=== PATIENT | female | born 1995 | race African-American/Black ===

== ENCOUNTER 2020-05-20 10:31 | Emergency (ER) | payer OTHER ==
[~2020-05-20] VITALS: Ht 160 cm; Wt 57.6 kg
--- NOTE | 2020-05-20 12:53 | Diagnostic Imaging Report ---
X-ray left forearm 2 views History: Trauma Comparison: None Findings: No acute fracture, subluxation, significant soft tissue swelling or radiopaque foreign body. Impression: As above. Signed by: Bubba Gan MD on 05/20/2020 12:50 PM
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
[2020-05-20] MEDS ORDERED: NAPROSYN500 MG PO (13:23)
== END 2020-05-20 13:34 | disposition home or self-care (01) ==
LOC: FSED 11:15
DX: S50.12XA Contusion of left forearm, initial encounter (principal); V43.52XA Car driver injured in collision with other type car in traffic accident, initial encounter; Y92.488 Other paved roadways as the place of occurrence of the external cause
CPT/HCPCS: 99283